=== PATIENT | male | born 1985 | race Caucasian/White ===

== ENCOUNTER 2016-11-05 08:36 | Emergency (ER) | payer OTHER ==
[~2016-11-05] VITALS: Ht 180.3 cm; Wt 192.8 kg
--- NOTE | ~2016-11-05 | EKG ---
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
[2016-11-05] MEDS ORDERED: LOPRESSOR100 M1 PO (09:04)
[2016-11-05] MEDS ORDERED: COZAAR 25 MG TA25 M1 PO (09:06)
[2016-11-05] MEDS ORDERED: LIPITOR10 MG PO (09:06)
[2016-11-05 09:22] LABS: HEMATOCRIT 44.7 % (42.0-52.0); MCH 26.9 pg (26.0-34.0); MCHC 33.6 % (28.0-37.0); MCV 80.3 fL (80.0-100.0); RBC 5.56 mil/uL (4.50-6.00); RDW 14.4 % (10.5-14.5); WBC 6.5 thou/uL (4.0-11.0)
[2016-11-05 09:53] LABS: ALBUMIN 3.3 g/dL (3.4-5.0); ALKALINE PHOSPHATASE 54 U/L (46-116); CALCIUM 8.7 mg/dL (8.5-10.1); CREATININE 1.1 mg/dL (0.6-1.3); SGOT 42 U/L (15-37); SGPT 55 U/L (30-65); TOTAL PROTEIN 7.4 g/dL (6.4-8.2); TROPONIN-I < 0.04 ng/mL (<0.04-0.07)
[2016-11-05 10:03] LABS: POTASSIUM 4.6 mmol/L (3.5-5.1); SODIUM 136 mmol/L (136-145)
[2016-11-05 10:04] LABS: ANION GAP 13 mmol/L (7-16); BUN 15 mg/dL (7-18); CHLORIDE 101 mmol/L (98-107); CO2 22 mmol/L (21-32); GLUCOSE 109 mg/dL (70-99)
[2016-11-05 10:09] LABS: TOTAL BILIRUBIN 1.1 mg/dL (<0.1-1.0)
[2016-11-05 10:35] VITALS: BP 144/96
== END 2016-11-05 10:36 | disposition home or self-care (01) ==
LOC: ER 08:36
PROVIDERS: Emergency Medicine
DX: I16.0 Hypertensive urgency (principal); E78.00 Pure hypercholesterolemia, unspecified; F17.210 Nicotine dependence, cigarettes, uncomplicated